=== PATIENT | female | born 1985 | race Caucasian/White ===

== ENCOUNTER 2022-02-11 12:41 | Observation (INO) | payer BC, OTHER ==
[~2022-02-11] VITALS: Ht 160 cm; Wt 63.5 kg
[2022-02-11] MEDS ORDERED: METHYLPREDNISOLONE SOD SUCC 125 MG/2ML VIAL IV STA (12:52)
[2022-02-11] MEDS ORDERED: SODIUM CHLORIDE 0.9% 1000ML 1,000 ML IV STA (12:52)
[2022-02-11 13:05] LABS: BASOPHILS % 0.2 % (0.0-1.0); EOSINOPHILS # (AUTO) 0.2 (0.0-0.4); HEMATOCRIT 45.3 % (34.2-44.1); HEMOGLOBIN 15.2 g/dL (12.0-16.0); LYMPHOCYTES # (AUTO) 5.5 (1.0-3.2); MEAN CORPUSCULAR HEMOGLOBIN 30.8 pg (28-32); MEAN CORPUSCULAR HGB CONC 33.6 g/dL (31-35); MEAN CORPUSCULAR VOLUME 91.9 fL (81-99); MONOCYTES # (AUTO) 0.5 (0.2-0.8); MONOCYTES % 3.1 % (4.4-11.3); NEUTROPHILS # (AUTO) 10.4 (2.1-6.9); NEUTROPHILS % 62.2 % (38.7-80.0); PLATELET COUNT 381 x10e3/uL (140-360); RED BLOOD COUNT 4.93 x10e6/uL (3.6-5.1); RED CELL DISTRIBUTION WIDTH 11.9 % (11.7-14.4)
[2022-02-11] MEDS ORDERED: ONDANSETRON HCL INJ 2MG/ML 2ML 2 MG/ML VIAL IV PRN (13:30)
[2022-02-11] MEDS ORDERED: ACETAMINOPHEN 325 MG TAB PO PRN (13:30)
[2022-02-11 13:36] LABS: ALANINE AMINOTRANSFERASE 21 IU/L (0-55); ALBUMIN 3.5 g/dL (3.5-5.0); ALBUMIN/GLOBULIN RATIO 1.1 (0.8-2.0); ALKALINE PHOSPHATASE 30 IU/L (40-150); BLOOD UREA NITROGEN 14 mg/dL (7-26); BUN/CREATININE RATIO 12 (6-25); CALCIUM 8.5 mg/dL (8.4-10.2); CARBON DIOXIDE 22 mmol/L (22-29); CHLORIDE 107 mmol/L (98-107); CREATINE KINASE 59 IU/L (29-168); CREATININE, SERUM 1.18 mg/dL (0.57-1.11); EST GLOMERULAR FILTRATION RATE 52 ML/MIN (60-); GLUCOSE 208 mg/dL (74-118); SODIUM 139 mmol/L (136-145)
[2022-02-11] MEDS: SODIUM CHLORIDE 0.9% 1000ML 1,000 ML IV SCH ×2 (13:54→23:28)
[2022-02-11] MEDS: FAMOTIDINE 20 MG/2 ML VIAL IV SCH ×2 (13:56→20:28)
[2022-02-11] MEDS ORDERED: POTASSIUM CHLORIDE 20 MEQ TAB CR PO STA (13:59)
[2022-02-11] MEDS ORDERED: OSELTAMIVIR PHOSPHATE 75 MG CAP PO SCH (17:00)
[2022-02-11 17:24] VITALS: BP 116/68
[2022-02-11 18:13] VITALS: BP 116/68
[2022-02-11 18:26] VITALS: BP 116/68
[2022-02-11 20:00] VITALS: BP 113/68
[2022-02-11 21:07] LABS: CREATINE KINASE MB 0.6 ng/mL (0-5.0)
[2022-02-11 21:14] VITALS: BP 113/68
[2022-02-12] VITALS: BP 97/58
[2022-02-12 04:00] VITALS: BP 104/59
[2022-02-12 05:04] LABS: BASOPHILS % 0.1 % (0.0-1.0); HEMATOCRIT 33.5 % (34.2-44.1); LYMPHOCYTES % 11.5 % (18.0-39.1); MEAN CORPUSCULAR HEMOGLOBIN 30.2 pg (28-32); MEAN CORPUSCULAR HGB CONC 32.8 g/dL (31-35); MONOCYTES # (AUTO) 0.4 (0.2-0.8); MONOCYTES % 4.2 % (4.4-11.3); NEUTROPHILS # (AUTO) 7.6 (2.1-6.9); NEUTROPHILS % 83.8 % (38.7-80.0); PLATELET COUNT 230 x10e3/uL (140-360); RED BLOOD COUNT 3.64 x10e6/uL (3.6-5.1); RED CELL DISTRIBUTION WIDTH 11.8 % (11.7-14.4)
[2022-02-12 05:24] LABS: ALBUMIN 3.1 g/dL (3.5-5.0); ALBUMIN/GLOBULIN RATIO 1.1 (0.8-2.0); CALCIUM 8.2 mg/dL (8.4-10.2); CREATININE, SERUM 0.8 mg/dL (0.57-1.11)
[2022-02-12 05:45] LABS: CREATINE KINASE MB 0.5 ng/mL (0-5.0)
[2022-02-12] MEDS ORDERED: TAMIFLU75 MG PO (07:28)
[2022-02-12] MEDS ORDERED: ONDANSETRON HCL 4 MG ORAL DISINTEGRATING TAB PO PRN (07:30)
== END 2022-02-12 07:50 | disposition home or self-care (01) ==
LOC: ER 12:51 → ERHOLD 13:17 → MED/SURG3 17:07
PROVIDERS: ADMIT Family Medicine; ATTEND Family Medicine
DX: T88.6XXA Anaphylactic reaction due to adverse effect of correct drug or medicament properly administered, initial encounter (principal); L27.1 Localized skin eruption due to drugs and medicaments taken internally; T36.1X5A Adverse effect of cephalosporins and other beta-lactam antibiotics, initial encounter; Y92.531 Health care provider office as the place of occurrence of the external cause; J10.1 Influenza due to other identified influenza virus with other respiratory manifestations; Z20.822 Contact with and (suspected) exposure to COVID-19
CPT/HCPCS: 36415 ×2; 71045; 80053 ×2; 82550 ×2; 82553 ×2; 84484 ×2; 84702; 85025 ×2; 87040; 93005; 94799 ×2; 99284; G0378 ×2; J2405; J7030; U0002